=== PATIENT | female | born 1955 | race African-American/Black ===

== ENCOUNTER 2023-04-17 09:00 | Outpatient (CLI) | payer MEDICARE | END 2023-04-17 09:01 | disposition home or self-care (01) | LOC: CSHCT 09:00 | PROVIDERS: ATTEND Internal Medicine Cardiovascular Disease | DX: R09.89 Other specified symptoms and signs involving the circulatory and respiratory systems (principal); I70.90 Unspecified atherosclerosis; I77.1 Stricture of artery; R93.6 Abnormal findings on diagnostic imaging of limbs | CPT/HCPCS: 75635; 82565 ==

== ENCOUNTER 2023-11-25 08:50 | Outpatient (CLI) | payer MEDICARE | END 2023-11-25 08:51 | disposition home or self-care (01) | LOC: CSHMRI 08:50 | PROVIDERS: ATTEND Psychiatry & Neurology Neurology | DX: G20.C Parkinsonism, unspecified (principal); I67.89 Other cerebrovascular disease; Z86.73 Personal history of transient ischemic attack (TIA), and cerebral infarction without residual deficits | CPT/HCPCS: 36415; 70553; 76376; 82565 ==

== ENCOUNTER 2024-04-13 09:18 | Outpatient (CLI) | payer MEDICARE | END 2024-04-13 09:19 | disposition home or self-care (01) | LOC: CSHCT 09:18 | PROVIDERS: ATTEND Psychiatry & Neurology Neurology | DX: G20.C Parkinsonism, unspecified (principal) | CPT/HCPCS: 70450 ==